=== PATIENT | male | born 1995 | race Two or more races ===

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

== ENCOUNTER 2018-01-01 00:31 | Emergency (ER) | payer MEDICAID ==
[~2018-01-01] VITALS: Ht 180.3 cm; Wt 63.5 kg
--- NOTE | 2018-01-01 00:31 | NUR ---
BIB [facility] 89 FROM HOME, WITNESSED SEIZURE. NON VERBAL CONSTRUCTION STONEMASON. FAMIL AT BEDSIDE. VSS NAD A/OX4 ABLE TO MAKE NEEDS KNOWN. NO ACUTE DISTRESS AT THIS TIME. BREATHING WNL WITH ADEQUATE CHEST RISE/FALL. WILL CONTINUE TO MONITOR FOR ANY CHANGES DURING THE SHIFT.
--- NOTE | 2018-01-01 00:32 | NUR ---
ER MD OSULLIVAN AT BEDSIDE FOR EVAL
[2018-01-01] MEDS ORDERED: diphenhydrAMINE HCL 25 MG CAPSULE ONE (02:34)
[2018-01-01 02:42] VITALS: BP 119/69
[2018-01-01] MEDS ORDERED: diphenhydrAMINE HCL 25 MG CAPSULE PO ONE (03:00)
== END 2018-01-01 02:42 | disposition home or self-care (01) ==
LOC: ER 00:33
DX: L50.9 Urticaria, unspecified (principal)
CPT/HCPCS: 99283; A4606; Q0163; Z7610

== ENCOUNTER 2019-02-21 20:05 | Emergency (ER) | payer MEDICAID ==
[~2019-02-21] VITALS: Ht 180.3 cm; Wt 61.2 kg
[2019-02-21] MEDS ORDERED: ONDANSETRON HCL/PF 4 MG/2 ML VIAL ONE (21:14)
[2019-02-21] MEDS ORDERED: IV NS 0.9% 1,000 ML BAG IV ONE (21:30)
[2019-02-21] MEDS ORDERED: ONDANSETRON HCL/PF 4 MG/2 ML VIAL IVP ONE (21:30)
[2019-02-21 21:36] LABS: APPEARANCE,URINE Clear (CLEAR); BASOPHILS % (AUTO) 0.3 % (0.0-2.0); BILIRUBIN,URINE SMALL (NEGATIVE); BLOOD, URINE Trace-intact Ery/uL (NEGATIVE); COLOR,URINE Other (YELLOW); EOSINOPHILS % (AUTO) 0.1 % (0.0-6.0); HEMATOCRIT 49 % (39-51); HEMOGLOBIN 16.8 g/dL (13.5-17.5); KETONES,URINE Trace (NEGATIVE); LEUKOCYTE ESTERASE ,URINE Negative (NEGATIVE); LYMPHOCYTES # (AUTO) 0.6 /CMM (0.8-4.8); LYMPHOCYTES % (AUTO) 7.3 % (20.0-44.0); MEAN CORPUSCULAR HGB CONC 34 g/dl (31.0-36.0); MEAN CORPUSCULAR VOLUME 85 fL (80-96); MONOCYTES # (AUTO) 0.5 /CMM (0.1-1.30); MONOCYTES % (AUTO) 5.9 % (2.0-12.0); NEUTROPHILS # (AUTO) 7.7 /CMM (1.8-8.9); NEUTROPHILS % (AUTO) 86.4 % (43.0-81.0); NITRITE, URINE Negative (NEGATIVE); PH,URINE 6.5 (5.0-8.0); PLATELET COUNT (AUTO) 177 /CMM (150-450); PROTEIN,URINE 100 mg/dl (NEGATIVE); RED BLOOD CELL COUNT(AUTO) 5.77 MIL/uL (4.5-6.0); UGLUCOSE Negative (NEGATIVE); UROBILINOGEN,URINE 0.2 EU/dL (0.2); WHITE BLOOD COUNT (AUTO) 8.9 K/uL (4.3-11.0)
--- NOTE | 2019-02-21 21:37 | NUR ---
BIBSELF WITH FAMILY. TO ER BED 9. AAOX4. NO RESP DISTRESS NOTED. AMBULATORY. C/O VOMMITING AND NAUSEA SINCE YESTERDAY. DENIES CP. AFJOESPH. MD AT BEDSIDE FOR EVAL.
[2019-02-21 21:44] LABS: CALCIUM, SERUM 10.1 mg/dL (8.5-10.1); CREATININE 1.3 mg/dL (0.6-1.3); RBC,URINE 2-3/HPF /HPF (0-2)
[2019-02-21 21:45] LABS: BACTERIA,URINE None seen /HPF (None Seen); MUCUS,URINE Moderate /LPF (None Seen); SQUAMOUS EPITHELIAL CELL,UR Rare /HPF (None Seen); URINE AMORPHOUS URATE Few /HPF (None Seen); WBC,URINE 0-2 /HPF (0-3)
[2019-02-21 21:50] LABS: ALBUMIN 4.4 g/dL (3.4-5.0); BILIRUBIN,DIRECT 0.1 mg/dL (0.0-0.2); BILIRUBIN,TOTAL 0.5 mg/dL (0.2-1.0); TOTAL PROTEIN, SERUM 8.9 g/dL (6.4-8.2)
--- NOTE | 2019-02-21 22:50 | NUR ---
Patient discharged to home in stable condition. Written and verbal after care instructions given. Patient verbalizes understanding of instruction.IV removed. Catheter intact and site benign. Pressure and 4x4 applied to site. No bleeding noted. Pt ambulatory with a steady gait
[2019-02-21 23:39] VITALS: BP 118/62
== END 2019-02-21 23:40 | disposition home or self-care (01) ==
LOC: ER 20:08
DX: R11.2 Nausea with vomiting, unspecified (principal)
CPT/HCPCS: 36415; 80048; 80076; 81001; 83690; 85025; 96361; 96374; 99283; J2405; J7030; 81000-TC